=== PATIENT | male | born 1950 | race Caucasian/White ===

== ENCOUNTER 2021-09-07 13:57 | Outpatient (REF) | payer MEDICARE, BC, SELFPAY | END 2021-09-07 13:58 | disposition home or self-care (01) | LOC: HO.BBR 13:57 | PROVIDERS: Visit Provider Internal Medicine Hematology | DX: D75.1 Secondary polycythemia (principal) | CPT/HCPCS: 85018; 99195 ==

== ENCOUNTER 2022-01-05 11:01 | Outpatient (REF) | payer MEDICARE, BC, SELFPAY | END 2022-01-05 11:02 | disposition home or self-care (01) | LOC: HO.BBR 11:01 | PROVIDERS: Visit Provider Internal Medicine Hematology | DX: D75.1 Secondary polycythemia (principal) | CPT/HCPCS: 85018; 99195 ==